=== PATIENT | female | born 1930 | race Caucasian/White ===

== ENCOUNTER 2016-10-02 00:02 | Inpatient (IN) ==
[2016-10-02 01:15] LABS: URINE SOURCE CATH
[2016-10-02 01:44] LABS: BASO% 0.5 % (0.0-0.8); EOS# 0.08 X1000 (0.0-0.7); EOS% 0.7 % (0.0-10.0); HEMATOCRIT 33.8 % (37.0-47.0); HEMOGLOBIN 10.6 g/dL (12.0-16.0); IMM GRAN# 0.03 X1000 (0.0-0.04); IMM GRAN% 0.3 % (0.0-0.5); LYMPH# 2.15 X1000 (1.2-3.4); LYMPH% 18.1 % (20.5-51.1); MANUAL DIFF NEEDED? YES; MCH 23.7 PG (27-31); MCHC 31.4 g/dL (33-37); MCV 75.6 FL (81-99); MONO# 1.01 X1000 (0.11-0.59); MONO% 8.5 % (1.7-9.3); MPV 9.3 FL (7.4-10.4); NEUT% 71.9 % (42.2-75.2); PLT 893 X1000 (130-400); RBC 4.47 XMIL (4.2-5.4)
[2016-10-02 01:45] LABS: BANDS 1 % (0-1); HYPOCHROM 1+; LYMPHS 26 % (21-51); MONO 3 % (1-9)
[2016-10-02 01:58] LABS: BILIRUBIN URINE NEGATIVE (NEGATIVE); BLOOD URINE NEGATIVE (NEGATIVE); CLARITY CLEAR (CLEAR); COLOR YELLOW; GLUCOSE URINE NEGATIVE (NEGATIVE); LEUKOCYTES URINE TRACE (NEGATIVE); NITRITE URINE NEGATIVE (NEGATIVE); PROTEIN URINE NEGATIVE (NEGATIVE); UROBILINOGEN URINE NORMAL
[2016-10-02 02:00] LABS: URINE CULTURE PL NEEDED? YES; URINE EPITHELIAL CELLS <10 /HPF (<10); URINE RBC <10 /HPF (<10); URINE WBC <10 /HPF (<10)
[2016-10-02 02:34] LABS: AGAP 16; ALBUMIN 1.9 g/dL (3.5-5.0); ALKALINE PHOSPHATASE 139 U/L (32-104); BUN 13 mg/dL (8-22); CALCIUM 9.9 mg/dL (8.8-10.2); CHLORIDE 93 mmol/L (98-107); COSMO 259; GOT 22 U/L (10-30); GPT 16 U/L (10-36); POTASSIUM 4.2 mmol/L (3.5-5.1); SODIUM 129 mmol/L (136-145); TCO2 20 mmol/L (25-35); TOTAL PROTEIN 6.6 g/dL (6.3-8.3)
[2016-10-02] MEDS ORDERED: NS 1,000 ML IV ONE (03:15)
[2016-10-02] MEDS ORDERED: CRESTOR PO ONE (03:19)
[2016-10-02] MEDS ORDERED: COZAAR PO ONE (03:19)
[2016-10-02] MEDS ORDERED: ASPIRIN PO ONE (03:19)
[2016-10-02] MEDS ORDERED: ZYLOPRIM PO ONE (03:30)
[2016-10-02 03:58] LABS: IRON SATURATION 8 %; TIBC 194 ug/dL; TOTAL IRON 15 ug/dL (49-151); UNBOUND IRON 179 ug/dL (112-346)
--- NOTE | 2016-10-02 08:28 | Diag Imaging Result Doc PS360 ---
EXAM: FLAT/UPRIGHT ABD/1 VIEW CHEST INDICATION: pain TECHNIQUE: 4 views COMPARISON: 09/09/2015 and 09/06/2015 FINDINGS: There is a large amount of stool in the rectum suggesting fecal impaction. The diameter of the impacted rectum measures up to 8.6 cm in diameter by plain radiograph. There is nonspecific colonic and small bowel gas. This is probably due to the impaction. There is no evidence of high-grade obstruction. There is no evidence of large volume free abdominal gas. There are stable metallic clips in the upper abdomen and a stable coarse calcification in the left upper quadrant. There is stable linear scarring versus chronic atelectasis in the right mid to lower lung zone and left lower lung zone. There is a moderate-sized hiatal hernia that is stable. Cardiac silhouette is unremarkable. IMPRESSION: 1.Rectal fecal impaction as described. 2.A partially stable scarring and/or atelectasis at the lower lung zones. 3.Stable hiatal hernia. Electronically signed by Damián Miller 10/02/2016 8:25 AM
[2016-10-02] MEDS ORDERED: DULCOLAX PR ONE (09:44)
[2016-10-02] MEDS ORDERED: FERRLECIT 125 MG in NS 100 ML IV ONE (10:00)
--- NOTE | 2016-10-02 10:49 | HISTORY AND PHYSICAL ---
PRIMARY CARE PHYSICIAN: Joey Dunlap MD CHIEF COMPLAINT: Altered mental status, left upper quadrant abdominal pain, and decreased appetite. HISTORY OF PRESENTING ILLNESS: This is an 86-year-old female, who presented to [facility] ER with family after they felt that she was not acting right. Had increased confusion, decreased appetite, and some left upper quadrant abdominal pain. Workup showed a white blood cell count to be mildly elevated at 11.91. Sodium of 129, chloride 93, she had an iron level of 15 with a TIBC of 194. Urinalysis was essentially negative, except for 3+ bacteria. She had an abdominal x-ray that showed a rectal fecal impaction. So, she was admitted for further evaluation and treatment. PAST MEDICAL HISTORY: Gout, hypothyroidism, dyslipidemia, hypertension, chronic pain, and renal cancer. PAST SURGICAL HISTORY: Left nephrectomy and a right knee surgery. FAMILY HISTORY: Noncontributory. SOCIAL HISTORY: She does not use tobacco, alcohol, or illicit drug use. Lives with family and has home health. ALLERGIES: Sulfa. HOME MEDICATIONS: 1. Allopurinol 100 mg p.o. daily. 2. Aspirin 81 mg p.o. daily. 3. Vitamin D3 1000 units p.o. daily. 4. Vitamin B12 1000 mcg p.o. daily. 5. Cozaar 100 mg p.o. daily. 6. Centrum Silver multivitamin 1 p.o. daily. 7. Crestor 20 mg p.o. at bedtime. LABORATORY DATA: Showed a white blood cell count of 11.91, hemoglobin 10.6, hematocrit 33.8, platelets 893,000. Sodium of 129, potassium 4.2, chloride 93, CO2 20, BUN of 13, creatinine 0.5, glucose 92. An iron of 15, with a TIBC of 194. TSH was 4.83. Plasma lactate of 1.0. Urinalysis was negative, except for 3+ bacteria. Abdominal x-ray showed a rectal fecal impaction. REVIEW OF SYSTEMS: Unable to obtain due to patient's confusion. PHYSICAL EXAMINATION: VITAL SIGNS: On arrival, she had a temperature of 97 degrees, a pulse of 99, respirations 20, blood pressure 114/73, saturating 96% on room air. GENERAL: This is an 86-year-old female, lying in the bed. Answers questions, but it is noted to be pleasantly confused. HEENT: Normocephalic and atraumatic. Pupils are equal, round, reactive to light. Extraocular movements are intact. Oropharynx and nares are clear. NECK: Supple. LUNGS: Clear to auscultation bilaterally with equal lung expansion and chest wall movement. HEART: With regular rate and rhythm. No murmurs, rubs, or gallops. ABDOMEN: Soft. There is some tenderness to the left upper quadrant. Bowel sounds are hypoactive x4 quadrants. EXTREMITIES: No clubbing, cyanosis, or edema. NEUROLOGICAL: The cranial nerves 2-12 are grossly intact. ASSESSMENT: 1. Hyponatremia. 2. Iron deficiency anemia. 3. Fecal impaction. PLAN: She was admitted to the medical unit at [place]. Placed on telemetry and clear liquid diet. Will obtain a urine culture. Continue her home medications. We will give her a dose of Ferrlecit 125 mg IV x1 today. Will give a Dulcolax suppository 10 mg per rectum x1 and MiraLAX 17 g p.o. daily and recheck a CBC and a BMP in the a.m. She also has normal saline at 150 mL an hour. Dictated by JOVANI Patel for Anatoliy Mcknight MD cc: JOVANI Patel MD Akram Haggag, MD
[2016-10-02] MEDS: MIRALAX PO SCH (11:02)
[2016-10-02] MEDS: COZAAR PO SCH (11:03)
[2016-10-02] MEDS: ZYLOPRIM PO SCH (11:03)
[2016-10-02] MEDS: ASPIRIN PO SCH (11:03)
[2016-10-02] MEDS: VITAMIN D PO SCH (11:03)
[2016-10-02] MEDS: VITAMIN B-12 PO SCH (11:03)
[2016-10-02] MEDS: THERA M PLUS PO SCH (11:04)
[2016-10-02] MEDS: CRESTOR PO SCH (20:14)
[2016-10-03] MEDS ORDERED: CALMOSEPTINE OINTMENT TOP PRN (05:56)
[2016-10-03 07:07] LABS: BASO% 0.3 % (0.0-0.8); EOS# 0.08 X1000 (0.0-0.7); EOS% 0.8 % (0.0-10.0); HEMATOCRIT 32.6 % (37.0-47.0); IMM GRAN# 0.02 X1000 (0.0-0.04); IMM GRAN% 0.2 % (0.0-0.5); LYMPH% 18.8 % (20.5-51.1); MANUAL DIFF NEEDED? YES; MCH 23.4 PG (27-31); MCHC 30.7 g/dL (33-37); MCV 76.2 FL (81-99); MONO# 0.96 X1000 (0.11-0.59); MPV 9.2 FL (7.4-10.4); NEUT% 69.9 % (42.2-75.2); PLT 788 X1000 (130-400); RBC 4.28 XMIL (4.2-5.4)
[2016-10-03 07:13] LABS: AGAP 13; BUN 9 mg/dL (8-22); CALCIUM 9.5 mg/dL (8.8-10.2); CHLORIDE 96 mmol/L (98-107); COSMO 257; POTASSIUM 4.2 mmol/L (3.5-5.1); SODIUM 129 mmol/L (136-145); TCO2 21 mmol/L (25-35)
[2016-10-03] MEDS: VITAMIN B-12 PO SCH (08:55)
[2016-10-03] MEDS: ZYLOPRIM PO SCH (08:55)
[2016-10-03] MEDS: MIRALAX PO SCH (08:55)
[2016-10-03] MEDS: THERA M PLUS PO SCH (08:55)
[2016-10-03] MEDS: ASPIRIN PO SCH (08:55)
[2016-10-03] MEDS: VITAMIN D PO SCH (08:55)
[2016-10-03] MEDS: COZAAR PO SCH (08:58)
[2016-10-03 12:21] LABS: EOS 1 % (1-10); HYPOCHROM 1+; LYMPHS 20 % (21-51); MONO 7 % (1-9)
--- NOTE | 2016-10-03 13:31 | PROGRESS NOTE ---
DATE: 10/03/2016 SUBJECTIVE: Patient resting quietly in bed. No complaints voiced. OBJECTIVE: Vital Signs: Temperature 97.5 degrees, pulse 55, respirations 18, blood pressure 114/55, satting 100% on room air. General: This is an 86-year-old, female lying in the bed. HEENT: Normocephalic and atraumatic. Pupils are equal, round, and reactive to light. The extraocular movements are intact. Oropharynx and nares are clear. Neck: Supple. Lungs: Clear to auscultation bilaterally with equal lung expansion and chest wall movement. Heart: With regular rate and rhythm. No murmurs, rubs, or gallops. Abdomen: Soft, nontender, nondistended. Bowel sounds are present x4 quadrants. Extremities: No clubbing, cyanosis, or edema. Neurological: The cranial nerves 2-12 appear grossly intact. LABORATORY DATA: Showed a white blood cell count of 9.60, a hemoglobin of 10, hematocrit 32.6, platelets 788. Sodium of 129, potassium 4.2, chloride 96, CO2 21, BUN of 9, creatinine 0.4, glucose 87. Urine culture showed no growth. ASSESSMENT/PLAN: 1. Hyponatremia. We will place the patient on 100 mL an hour normal saline. We will check a urine osmolality, a urine sodium today. 2. Fecal impaction. Patient is noted to have had 2 bowel movements since yesterday. We will recheck a flat and upright of the abdomen today to ensure that the fecal impaction is resolved. 3. Iron-deficiency anemia, stable. Patient received her intravenous Ferrlecit yesterday. She continues on her oral supplementation. DISPOSITION: This patient is at high risk for falls and it is risky for her to go home. It is felt that we need to complete her workup at this time and improve her sodium, improve her bowel status at this time. Would recommend rehab placement for this patient. We will recheck a CBC and a BMP in the a.m. Dictated by JOVANI Patel for Duy Nielson MD cc: JOVANI Patel MD pt examined, agree with above, will workup hyponatremia as she appears to be symptomatic APENOT MTDD
--- NOTE | 2016-10-03 13:37 | Diag Imaging Result Doc PS360 ---
EXAM: ABDOMEN FLAT/UPRIGHT HISTORY: fecal impaction TECHNIQUE: Three views COMPARISON: 10/02/2016 FINDINGS: The large amount of rectal fecal material has decreased when compared with the prior study. There are surgical clips and a stable coarse calcification upper abdomen. There is no evidence for free air. A moderate hiatal hernia is visualized. The bowel gas pattern is nonobstructive. IMPRESSION: Decreased amount of fecal material within the rectum. No evidence for obstruction. Hiatal hernia. Electronically signed by Yadira Romero 10/03/2016 1:35 PM
[2016-10-03] MEDS: NS 1,000 ML IV SCH ×2 (18:23→22:45)
[2016-10-03] MEDS: CRESTOR PO SCH (22:43)
[2016-10-04 06:09] LABS: MANUAL DIFF NEEDED? NO
[2016-10-04 06:14] LABS: BASO% 0.2 % (0.0-0.8); EOS# 0.12 X1000 (0.0-0.7); EOS% 1.4 % (0.0-10.0); HEMATOCRIT 31.8 % (37.0-47.0); HEMOGLOBIN 9.9 g/dL (12.0-16.0); IMM GRAN# 0.02 X1000 (0.0-0.04); IMM GRAN% 0.2 % (0.0-0.5); LYMPH# 1.64 X1000 (1.2-3.4); LYMPH% 18.7 % (20.5-51.1); MCH 23.6 PG (27-31); MCHC 31.1 g/dL (33-37); MCV 75.9 FL (81-99); MONO# 0.85 X1000 (0.11-0.59); MONO% 9.7 % (1.7-9.3); MPV 8.9 FL (7.4-10.4); NEUT% 69.8 % (42.2-75.2); PLT 713 X1000 (130-400); RBC 4.19 XMIL (4.2-5.4)
[2016-10-04 06:33] LABS: AGAP 13; BUN 7 mg/dL (8-22); CALCIUM 8.9 mg/dL (8.8-10.2); CHLORIDE 96 mmol/L (98-107); COSMO 258; POTASSIUM 4.4 mmol/L (3.5-5.1); SODIUM 130 mmol/L (136-145); TCO2 21 mmol/L (25-35)
[2016-10-04] MEDS: COZAAR PO SCH (09:46)
[2016-10-04] MEDS: VITAMIN D PO SCH (09:47)
[2016-10-04] MEDS: ZYLOPRIM PO SCH (09:47)
[2016-10-04] MEDS: ASPIRIN PO SCH (09:47)
[2016-10-04] MEDS: THERA M PLUS PO SCH (09:47)
[2016-10-04] MEDS: VITAMIN B-12 PO SCH (09:48)
[2016-10-04] MEDS: MIRALAX PO SCH (09:48)
[2016-10-04] MEDS: NS 1,000 ML IV SCH (10:09)
[2016-10-04] MEDS ORDERED: SAMSCA PO ONE (11:33)
--- NOTE | 2016-10-04 11:58 | PROGRESS NOTE ---
DATE: 10/04/2016 SUBJECTIVE: Patient resting quietly in bed. No complaints voiced. OBJECTIVE: Vital Signs: Temperature 98.6 degrees, pulse 90, respirations 18, blood pressure 129/50, saturating 97% on room air. General: This is an 86-year-old female who is lying in the bed, resting quietly. HEENT: Normocephalic and atraumatic. Pupils are equal, round, and reactive to light. Extraocular movements are intact. Oropharynx and nares are clear. Neck: Supple. Lungs: Clear to auscultation bilaterally, with equal lung expansion and chest wall movement. Heart: Regular rate and rhythm. No murmurs, rubs, or gallops. Abdomen: Soft, nontender, and nondistended. Bowel sounds are present x4 quadrants. Extremities: There is no clubbing, cyanosis, or edema. Neurological: Cranial nerves 2-12 appear grossly intact. LABORATORY DATA: Showed a white blood cell count of 8.79, hemoglobin of 9.9, hematocrit 31.8, and platelets 713,000. Sodium of 130, potassium 4.4, chloride 96, CO2 of 21, BUN of 7, creatinine 0.3, and glucose 90. Urine culture showed no growth. Blood culture showed no growth after 48 hours. IMAGING: Abdomen x-ray from yesterday afternoon showed decreased amount of fecal material within the rectum, no evidence for an instruction, and a hiatal hernia. ASSESSMENT AND PLAN: 1. Hyponatremia. We will continue her normal saline at 100 mL an hour and recheck a BMP in the a.m. I will make sure we get her urine sodium today. It does not appear that this has been collected yet, and will check that. 2. Fecal impaction. This is improved. We will continue her bowel regimen at this time. 3. Iron deficiency anemia, stable currently. DISPOSITION: Due to her being at high risk for falls, we are going to consult Physical Therapy. Recheck labs in the a.m. Social Work is involved to find rehab placement for this patient at this time, and will discharge when medically stable. Dictated by JOVANI Patel for Duy Nielson MD cc: JOVANI Patel MD pt examined, will dose with samsca today due to hyponatremia and follow sodium level closely APENOT MTDD
[2016-10-04 19:44] LABS: AGAP 14; BUN 7 mg/dL (8-22); CALCIUM 9.9 mg/dL (8.8-10.2); CHLORIDE 98 mmol/L (98-107); COSMO 264; POTASSIUM 4.9 mmol/L (3.5-5.1); SODIUM 133 mmol/L (136-145); TCO2 21 mmol/L (25-35)
[2016-10-04] MEDS: CRESTOR PO SCH (20:25)
[2016-10-05 06:53] LABS: BASO% 0.3 % (0.0-0.8); EOS# 0.09 X1000 (0.0-0.7); EOS% 0.8 % (0.0-10.0); HEMATOCRIT 35.1 % (37.0-47.0); HEMOGLOBIN 10.8 g/dL (12.0-16.0); IMM GRAN# 0.04 X1000 (0.0-0.04); IMM GRAN% 0.3 % (0.0-0.5); LYMPH# 2.11 X1000 (1.2-3.4); MANUAL DIFF NEEDED? YES; MCH 23.7 PG (27-31); MCHC 30.8 g/dL (33-37); MONO# 1.16 X1000 (0.11-0.59); MONO% 9.9 % (1.7-9.3); MPV 8.9 FL (7.4-10.4); NEUT% 70.7 % (42.2-75.2); PLT 756 X1000 (130-400); RBC 4.56 XMIL (4.2-5.4)
[2016-10-05 07:17] LABS: AGAP 14; BUN 7 mg/dL (8-22); CHLORIDE 102 mmol/L (98-107); COSMO 271; POTASSIUM 4.8 mmol/L (3.5-5.1); SODIUM 137 mmol/L (136-145); TCO2 21 mmol/L (25-35)
[2016-10-05 07:40] LABS: EOS 3 % (1-10); LYMPHS 15 % (21-51); MONO 12 % (1-9)
[2016-10-05 07:43] LABS: HYPOCHROM 1+
[2016-10-05 07:44] LABS: TARGET CELLS OCCASIONAL
[2016-10-05] MEDS: MIRALAX PO SCH (09:43)
[2016-10-05] MEDS: VITAMIN D PO SCH (09:43)
[2016-10-05] MEDS: COZAAR PO SCH (09:43)
[2016-10-05] MEDS: THERA M PLUS PO SCH (09:43)
[2016-10-05] MEDS: ASPIRIN PO SCH (09:43)
[2016-10-05] MEDS: VITAMIN B-12 PO SCH (09:44)
[2016-10-05] MEDS: ZYLOPRIM PO SCH (09:44)
--- NOTE | 2016-10-05 16:42 | PROGRESS NOTE ---
DATE: 10/05/2016 SUBJECTIVE: Patient has no focal complaints. She looks pretty well. OBJECTIVE: Vital signs: Blood pressure 136/79, heart rate 56, respiratory rate 98% on room air. Cardiovascular: Regular rate and rhythm. Pulmonary: Bilateral breath sounds. Clear to auscultation. GI: Soft, nontender, nondistended. Bowel sounds are positive. LABORATORY DATA: White count 11, hemoglobin and hematocrit 10, 35, platelets 756,000. Chemistries look okay. PROBLEM LIST: 1. Hyponatremia. This has resolved with Samsca. We will continue to monitor. 2. Fecal impaction is basically resolved. I am going to continue her bowel regimen. She has had several bowel movements. 3. Dementia, encephalopathy also seems to be improving. I am going to add a little bit of Seroquel at night. DISPOSITION: Plan for rehab soon. cc: Duy Nielson MD
[2016-10-05] MEDS: LACTULOSE PO SCH (20:23)
[2016-10-05] MEDS: CRESTOR PO SCH (20:23)
[2016-10-05] MEDS: SEROQUEL PO SCH (20:23)
[2016-10-06 06:36] LABS: HEMATOCRIT 32.8 % (37.0-47.0); HEMOGLOBIN 10.5 g/dL (12.0-16.0); MCH 24.6 PG (27-31); MCV 76.8 FL (81-99); MPV 8.9 FL (7.4-10.4); RBC 4.27 XMIL (4.2-5.4)
[2016-10-06 06:39] LABS: AGAP 11; BUN 8 mg/dL (8-22); CHLORIDE 100 mmol/L (98-107); COSMO 267; POTASSIUM 4.8 mmol/L (3.5-5.1); SODIUM 134 mmol/L (136-145); TCO2 23 mmol/L (25-35)
[2016-10-06] MEDS: COZAAR PO SCH (09:44)
[2016-10-06] MEDS: MIRALAX PO SCH (09:45)
[2016-10-06] MEDS: VITAMIN D PO SCH (09:45)
[2016-10-06] MEDS: ASPIRIN PO SCH (09:45)
[2016-10-06] MEDS: VITAMIN B-12 PO SCH (09:45)
[2016-10-06] MEDS: THERA M PLUS PO SCH (09:45)
[2016-10-06] MEDS: ZYLOPRIM PO SCH (09:45)
[2016-10-06] MEDS: LACTULOSE PO SCH ×2 (09:58→21:10)
[2016-10-06] MEDS ORDERED: SAMSCA PO ONE (11:37)
--- NOTE | 2016-10-06 14:03 | PROGRESS NOTE ---
DATE: 10/06/2016 SUBJECTIVE: The patient has no complaints. She states she is feeling better. OBJECTIVE: Vital Signs: Blood pressure is 126/64 with a heart rate of 88, respirations 18, temperature is 98.1 degrees, with room air saturations of 93% to 96%. Cardiovascular: Regular rate and rhythm. S1 and S2 appreciated. Pulmonary: Breath sounds are clear with no increased work of breathing noted. Gastrointestinal: The abdomen is soft, nontender, nondistended with bowel sounds in all 4 quadrants. Extremities: No clubbing, cyanosis, or edema. Calves nontender. Pulses palpable x4. LABORATORY: WBC is 10.6 with a hemoglobin of 10.5, hematocrit 32.8, and platelets of 751,000. Sodium is 134, potassium 4.8, BUN 8, creatinine 0.4 with a glucose of 102. PROBLEM LIST: 1. Hyponatremia. This has resolved. We will continue to follow her labs. 2. Fecal impaction. She has not had a bowel movement in the last 2 days it looks like. We will continue her lactulose as ordered, as well as MiraLAX. 3. Dementia. Encephalopathy seems to be improving. 4. Iron deficiency anemia. This is stable. We will continue with oral supplementation. Dictated by JOVANI Diallo for Duy Nielson MD cc: JOVANI Diallo MD
[2016-10-06] MEDS: SEROQUEL PO SCH (21:10)
[2016-10-06] MEDS: CRESTOR PO SCH (21:10)
[2016-10-07 07:05] LABS: AGAP 11; BUN 7 mg/dL (8-22); CALCIUM 10.3 mg/dL (8.8-10.2); CHLORIDE 102 mmol/L (98-107); COSMO 270; POTASSIUM 4.1 mmol/L (3.5-5.1); SODIUM 136 mmol/L (136-145); TCO2 24 mmol/L (25-35)
[2016-10-07 08:26] VITALS: BP 110/61
[2016-10-07] MEDS: LACTULOSE PO SCH (09:55)
[2016-10-07] MEDS: MIRALAX PO SCH (09:55)
[2016-10-07] MEDS: THERA M PLUS PO SCH (09:56)
[2016-10-07] MEDS: COZAAR PO SCH (09:56)
[2016-10-07] MEDS: VITAMIN B-12 PO SCH (09:56)
[2016-10-07] MEDS: ZYLOPRIM PO SCH (09:56)
[2016-10-07] MEDS: VITAMIN D PO SCH (09:56)
[2016-10-07] MEDS: ASPIRIN PO SCH (09:57)
--- NOTE | 2016-10-07 12:55 | DISCHARGE SUMMARY ---
ADMISSION DATE: 10/03/2016 DISCHARGE DATE: 10/07/2016 DISCHARGE DIAGNOSES: 1. Constipation. 2. Hyponatremia. 3. Fecal impaction. 4. Dementia. 5. Iron deficiency anemia. ADMISSION DIAGNOSES: 1. Dementia. 2. Encephalopathy due to hyponatremia. 3. Iron deficiency anemia. 4. Fecal impaction. HISTORY AND HOSPITAL COURSE: Briefly, this is an 86-year-old female, presenting with worsening confusion, decreased appetite. Sodium level was initially 129. She was also on iron deficient. There was some question of UTI, but urine culture did not grow out anything. She did have a fecal impaction, which was resolved during this admission. The patient was initially placed on normal saline, but had persistent low levels of sodium. 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 We gave her a dose and it went up to 133, then 137. Then she went back down to 134 and is back up to 136. Clinically, she is stabilized. Her hemoglobin and hematocrit have been stable. I think she has gotten a dose of IV iron and we maintained her on her iron supplement. DISCHARGE MEDICATIONS FOLLOWS: 1. Allopurinol 100 mg daily. 2. Aspirin 81 mg daily. 3. Vitamin D 3 1000 units daily. 4. Vitamin B12 1000 mcg daily. 5. Cozaar 100 mg daily. 6. Multivitamin. 7. Folate. 8. Lycopene. 9. Icar C. 10. MiraLAX 17 g daily. 11. Crestor daily. 12. Lactulose as needed for constipation just to avoid the constipating effects of her iron supplementation. DISCHARGE CONDITION: Stable. Day of discharge, her vital signs were stable, 110/61. Heart rate in the 90s. Afebrile. She appears pleasantly confused. No major issues since she has been here. She is going to inpatient rehab. I believe [facility] and rehab, and we will follow. TIME SPENT ON DISCHARGE: Thirty-two minutes. cc: MD Joey Sommer MD
--- NOTE | 2016-10-07 13:25 | Diag Imaging Result Doc PS360 ---
EXAM: CHEST-PORTABLE HISTORY: Custodial Placement TECHNIQUE: Erect AP portable at 1254 COMMENT: There is a large hiatal hernia. The inspiration is less optimal than on 09/06/2015. Some fibrotic scar formation is present in the right middle lobe which has not changed. There is fibrosis in the left costophrenic sulcus. IMPRESSION: Poor inspiration. Hiatal hernia. No definite evidence of acute disease. Electronically signed by Dick Palacio 10/07/2016 1:22 PM
--- NOTE | 2016-10-30 02:08 | PROVIDER DOCUMENTATION ---
This chart was entered by Katia Skaggs Scribe, acting as scribe for Magdy Truong MD. HPI-General Adult - General Chief Complaint: General Adult Stated Complaint: AMS, "NOT EATING OR DRINKING, CAN'T WALK" Time Seen by Provider: 10/02/16 00:18 Source: patient Allergies/Adverse Reactions: Patient Allergies Allergy/AdvReac Type Severity Reaction Status Date / Time Sulfa (Sulfonamide AdvReac NAUSEA/VOMI Verified 10/02/16 00:08 Antibiotics) TING Home Medications: Home Medication List Medication Instructions Recorded Confirmed Last Taken Type Aspirin 81 mg PO DAILY 09/06/15 10/02/16 10/01/16 08:00 History Losartan [Cozaar] 100 mg PO DAILY 09/07/15 10/02/16 10/01/16 08:00 History Rosuvastatin Calcium [Crestor] 20 mg PO QHS 09/07/15 10/02/16 10/01/16 08:00 History Allopurinol 100 mg PO DAILY 10/02/16 10/02/16 10/01/16 08:00 History Cholecalciferol (Vitamin D3) 1,000 unit PO DAILY 10/02/16 10/02/16 10/01/16 History [Vitamin D3] Cyanocobalamin (Vitamin B-12) 1,000 mcg PO DAILY 10/02/16 10/02/16 10/01/16 History [Vitamin B-12] Multivit-Min/FA/Lycopen/Lutein 1 each PO DAILY 10/02/16 10/02/16 10/01/16 History [Centrum Silver Tablet] Lactulose 30 ml PO DAILY PRN #30 udc 10/07/16 Unknown Rx Polyethylene Glycol 3350 [Miralax] 17 gm PO DAILY #30 powd.pack 10/07/16 Unknown Rx - History of Present Illness -Gen Adult Nature of Presenting Problems: 86 Y/O F presents to ED with AMS. Pt was brought in by EMS, stating that family woke pt up out of sleep because pt needed to be seen. pt isn't eating or drinking at home, and can't walk, Pt knows state and name but doesn't know why she is in the hospital. Pt doesn't know the year believes it is 1998. Pt c/o of ABD pain in LUQ. Pt believes that she is 35 yrs old. Knows the year that she was born. Location of Pain/Injury: reports: abdomen Pain Radiation: reports: no radiation Quality of Pain: reports: aching Severity: reports: moderate Onset/Duration: reports: 3 days ago Timing: reports: still present Associated Symptoms: reports: loss of appetite, weakness, trouble walking Review of Systems - Adult - REVIEW OF SYSTEMS - ADULT Constitutional: denies: chills, fever Eyes: reports: no symptoms reported Ears, Nose, Mouth & Throat: reports: no symptoms reported Cardiovascular: reports: no symptoms reported Respiratory: reports: no symptoms reported Gastrointestinal: reports: abdominal pain, poor appetite. denies: vomiting Genitourinary: reports: no symptoms reported Musculoskeletal: reports: muscle weakness Integumentary: reports: no symptoms reported Neurological: reports: no symptoms reported Psychiatric: reports: no symptoms reported Endocrine: reports: no symptoms reported Hematologic/Lymphatic: reports: no symptoms reported Allergic/Immunologic: reports: no symptoms reported All Other Systems: Reviewed and Negative Past History - Adult - PAST MEDICAL HISTORY-ADULT Review of Records: reports: Old Records Reviewed, Nursing Assessment Review, Medications Reviewed, Social history reviewed & non-contributory. Cardiovascular: reports: HTN - PRIOR SURGERIES/PROCEDURES Surgical/Procedure History: reports: other (L Nephrectomy) - IMMUNIZATION STATUS Childhood Immunizations: See Nurse Assessment Flu Vaccine: See Nurse Assessment Physical Exam-General - CONSTITUTIONAL General Appearance: no apparent distress. negative: alert (A&O X2) - EYES Eyes: PERRL/EOMI, pink conjunctivae - HEAD, EARS, NOSE, MOUTH & THROAT HENMT: normocephalic/atraumatic, normal ENT inspection, TMs normal, pharynx normal. negative: moist mucous membranes (DRY) - NECK Neck: non-tender, full range of motion, supple, normal inspection - RESPIRATORY Respiratory: lungs clear - CARDIOVASCULAR Cardiovascular: normal peripheral pulses, regular rate, rhythm - GASTROINTESTINAL (ABDOMEN) Abdominal Exam: soft, tenderness (LUQ) - LYMPHATIC Lymphatic: no adenopathy - MUSCULOSKELETAL Extremity: other (WEAKNESS IN LEGS). negative: normal gait - SKIN Integumentary: normal color - NEUROLOGIC Neurologic: red leader II-XII nml as tested Progress - PLAN OF CARE/RESULTS Progress/Plan/Lab Results: Vital Signs - 8 hr 10/02/16 00:04 Temperature 97.0 F L Pulse Rate 99 H Respiratory Rate 20 Blood Pressure 114/73 O2 Sat by Pulse Oximetry 96 Result Diagrams: 10/06/16 06:05 10/07/16 06:30 Departure - Departure Date of Disposition Decision: 10/02/16 Time of Disposition Decision: 03:15 DIAGNOSIS: Dementia Qualifiers: Dementia type: unspecified type Dementia behavioral disturbance: without behavioral disturbance Qualified Code(s): F03.90 - Unspecified dementia without behavioral disturbance Failure to thrive Qualifiers: Failure to thrive age range: in adult Qualified Code(s): R62.7 - Adult failure to thrive Disposition: ADMITTED INPATIENT 09 Certified Medical Emergency: Emergent Condition: Stable - Critical Care Note This patient required my direct & personal management of CC.: No This chart was documented by the indicated scribe, (Katia Skaggs Scribadelfo) and accurately reflects the services I performed and decisions made by me, Magdy Truong MD, as attested by the provider's signature.
== END 2016-10-07 14:45 ==
LOC: P.MEDSURG 00:02 → P.ED 00:02 → OBSVTOIN 03:52 → SUATTDRO 03:52 → INTOOBSV 03:52
PROVIDERS: ATTEND Internal Medicine